=== PATIENT | female | born 1965 | race Caucasian/White ===

== ENCOUNTER 2021-11-20 13:04 | Emergency (ER) | payer OTHER ==
[2021-11-20 13:44] LABS: HEMOGLOBIN 12.2 gm/dl (12.3-15.3); RED BLOOD COUNT 4.18 M/UL (4.00-5.10); WHITE BLOOD COUNT 3.3 K/UL (4.5-11.0)
[2021-11-20 14:18] LABS: BUN/CREATININE RATIO 15 (0-10)
== END 2021-11-20 15:26 | disposition home or self-care (01) ==
LOC: ER1 13:04
PROVIDERS: Physician Assistant
DX: U07.1 COVID-19 (principal); Z88.0 Allergy status to penicillin
CPT/HCPCS: 80053; 85025; 99283

== ENCOUNTER 2021-11-26 16:08 | Emergency (ER) | payer OTHER ==
[2021-11-26 17:37] LABS: HEMOGLOBIN 13.2 gm/dl (12.3-15.3); RED BLOOD COUNT 4.41 M/UL (4.00-5.10); WHITE BLOOD COUNT 8.6 K/UL (4.5-11.0)
[2021-11-26 18:04] LABS: BUN/CREATININE RATIO 18 (0-10)
== END 2021-11-26 20:09 | disposition left against medical advice (07) ==
LOC: ER1 16:08
PROVIDERS: Emergency Medicine
DX: U07.1 COVID-19 (principal); R79.1 Abnormal coagulation profile; Z88.0 Allergy status to penicillin
CPT/HCPCS: 71045; 80048; 82550; 82553; 83880; 84484; 85025; 85379; 93005; 99283